=== PATIENT | female | born 1990 | race Caucasian/White ===

== ENCOUNTER 2016-10-28 17:05 | Emergency (ER) | payer MEDICAID, OTHER ==
[~2016-10-28] VITALS: Ht 152.4 cm; Wt 63.2 kg
[2016-10-28 17:17] VITALS: Ht 152.4 cm; Wt 63.2 kg
[2016-10-28] MEDS ORDERED: ONDANSETRON 4 MG INJ IV STA (18:07)
[2016-10-28] MEDS ORDERED: LEVETIRACETAM 500 MG TAB PO ONE (18:30)
[2016-10-28] MEDS ORDERED: HYDROCODONE/APAP (5/325) TAB PO ONE (18:30)
--- NOTE | 2016-10-28 18:51 | RADRPT ---
PROCEDURE: CT Head without. CLINICAL INDICATION: Headache, seizure. TECHNIQUE: The study was performed utilizing a multi-slice, multidetector CT scanner. Direct spira l 1 mm axial sections were obtained through the head without the use of intravenous contrast materia l. Coronal and sagittal reformations were obtained. The images were reviewed on a PACS workstation. RADIATION DOSE: CTDIvol: 44.8 mGyDLP: 630.2 mGy-cm COMPARISON: No prior studies are available for comparison. FINDINGS: There is no intracranial hemorrhage, extra-axial fluid collection, mass lesion, midline shift or hyd rocephalus. There is a persistent cavum septum pellucidum/vergae, normal variant. The ventricles, sulci and cisterns are within normal limits. The white matter is unremarkable. The tate-white jessica er differentiation is preserved. The basal cisterns are patent. The midline structures are intact. The orbits, calvarium and extracranial soft tissues are normal in appearance. The visualized paran bryan sinuses, mastoid air cells and middle ear cavities are normally aerated. IMPRESSION: 1. No acute intracranial abnormality. No intracranial hemorrhage, extra-axial fluid collection, ma ss lesion or hydrocephalous. RPTAT: HGAS .Jean Pierre Mckeon MD, Date Time Electronically viewed and signed by .Jean Pierre Mckeon MD, MD on 10/28/2016 18:51 .S/
[2016-10-28 18:53] LABS: URINE BLOOD (Dip) POC 2+ (NEGATIVE)
[2016-10-28 19:04] LABS: BASOPHILS % 0.4 % (0.0-2.0); EOSINOPHILS # 0.1 10^3/ul (0.0-0.5); EOSINOPHILS % 1.1 % (0.0-7.0); HEMATOCRIT 39.2 % (37.0-47.0); HEMOGLOBIN 13.2 g/dl (12.0-16.0); LYMPHOCYTES # 1.5 10^3/ul (0.8-2.9); LYMPHOCYTES % 16.4 % (15.0-51.0); MEAN CORPUSCULAR HEMOGLOBIN 28.4 pg (29.0-33.0); MEAN CORPUSCULAR HGB CONC 33.6 g/dl (32.0-37.0); MEAN CORPUSCULAR VOLUME 84.6 fl (82.0-101.0); MEAN PLATELET VOLUME 6.3 fl (7.4-10.4); MONOCYTE # 0.6 10^3/ul (0.3-0.9); MONOCYTES % 6.8 % (0.0-11.0); NEUTROPHILS % 75.3 % (39.0-77.0); PLATELET COUNT 371 10^3/UL (140-440); RED BLOOD COUNT 4.64 10^6/ul (4.20-5.40); RED CELL DISTRIBUTION WIDTH 14.4 % (11.5-14.5); UNCORRECTED WBC 9.2 10^3/ul (4.8-10.8); WHITE BLOOD COUNT 9.2 10^3/ul (4.8-10.8)
[2016-10-28 19:09] LABS: CONDITION 1
[2016-10-28 19:10] LABS: POTASSIUM 3.8 mmol/L (3.5-5.1)
[2016-10-28 19:13] LABS: CREATININE 0.88 mg/dl (0.44-1.00)
[2016-10-28 19:14] LABS: CALCIUM 9.3 mg/dl (8.4-10.2)
[2016-10-28] MEDS ORDERED: IBUP-1542 PO (19:40)
[2016-10-28] MEDS ORDERED: LEVE250T66 PO (19:40)
--- NOTE | 2016-10-28 19:45 | ERD ---
ER Documentation Chief Complaint Date/Time DATE: 10/28/16 TIME: 19:43 Chief Complaint n/v, ap starting today HPI This 25-year-old female presents with a headache after giving a history of having a seizure today. Patient gives a history of having a seizure disorder since a young age. She did bite her tongue but denies any bowel or bladder incontinence. See states that she has a history of having this seizure every 6 months although they have become more frequently over the last 6 months. She has had 3 in the last 6 months including one today and one 3 days ago. Her primary complaint is that she usually gets a headache after seizure. She has never had any neurology follow-up and does not have a primary doctor and has never taken medication for seizures. She denies any known history of inciting events prior to her seizure such as trauma or infection. ROS All systems reviewed and are negative except as per history of present illness. Medications Home Meds Active Scripts Ibuprofen* (Motrin*) 600 Mg Tab, 600 MG PO Q6, #20 TAB Prov:SHELLI TORRES MD 10/28/16 Levetiracetam* (Keppra*) 250 Mg Tab, 250 MG PO BID, #60 TAB Prov:SHELLI TORRES MD 10/28/16 PMhx/Soc History of Surgery: No Anesthesia Reaction: No Hx Neurological Disorder: No Hx Respiratory Disorders: No Hx Cardiac Disorders: No Hx Psychiatric Problems: No Hx Miscellaneous Medical Probl: Yes (SEIZURE) Hx Alcohol Use: No Hx Substance Use: No Hx Tobacco Use: No Physical Exam Vitals Vital Signs Date Time Temp Pulse Resp B/P Pulse Ox O2 Delivery O2 Flow Rate FiO2 10/28/16 17:17 98.5 94 18 107/64 100 Physical Exam Const: [] Alert, [id number]. Head: Atraumatic Eyes: Normal Conjunctiva ENT: Normal External Ears, Nose and Mouth. There is a superficial laceration on the lateral aspect of the tongue. Airways patent. Neck: Full range of motion..~ No meningismus. Resp: Clear to auscultation bilaterally Cardio: Regular rate and rhythm, no murmurs Abd: Soft, non tender, non distended. Normal bowel sounds Skin: No petechiae or rashes Back: No midline or flank tenderness Ext: No cyanosis, or edema Neur: Awake and alert. Cranial nerves II through XII grossly intact. Normal gait. No appreciable focal neurologic deficits. Psych: Normal Mood and Affect Result Diagram: 10/28/160 10/28/161839 Results 24 hrs Laboratory Tests Test 10/28/16 18:40 10/28/16 18:53 Anion Gap 18 Basophils # 0.010^3/ul Basophils % 0.4% Blood Morphology Comment Blood Urea Nitrogen 11mg/dl Calcium Level 9.3mg/dl Carbon Dioxide Level 28mmol/L Chloride Level 102mmol/L Creatinine 0.88mg/dl Eosinophils # 0.110^3/ul Eosinophils % 1.1% Glucose Level 87mg/dl Hematocrit 39.2% Hemoglobin 13.2g/dl Lymphocytes # 1.510^3/ul Lymphocytes % 16.4% Mean Corpuscular Hemoglobin 28.4pg Mean Corpuscular Hemoglobin Concent 33.6g/dl Mean Corpuscular Volume 84.6fl Mean Platelet Volume 6.3fl Monocytes # 0.610^3/ul Monocytes % 6.8% Neutrophils # 7.010^3/ul Neutrophils % 75.3% Nucleated Red Blood Cells # 0.010^3/ul Nucleated Red Blood Cells % 0.0/100WBC Platelet Count 42575^3/UL Potassium Level 3.8mmol/L Red Blood Count 4.6410^6/ul Red Cell Distribution Width 14.4% Sodium Level 144mmol/L White Blood Count 9.210^3/ul Bedside Urine Blood 2+ Bedside Urine Glucose (UA) Negative Bedside Urine Ketones (LAB) Negative Bedside Urine Leukocyte Esterase (L Negative Bedside Urine Nitrite (LAB) Negative Bedside Urine Protein (LAB) Negative Bedside Urine pH (LAB) 6.5 Current Medications Medications (Trade) Dose Ordered Sig/Maria Elena Route PRN Reason Start Time Stop Time Status Last Admin Dose Admin Acetaminophen/ Hydrocodone Bitart ([place] (5/325)) 1 tab ONCE ONCE PO 10/28/16 18:30 10/28/16 18:31 DC 10/28/16 19:04 Ondansetron HCl (Zofran Inj) 4 mg ONCE STAT IV 10/28/16 18:07 10/28/16 18:11 DC 10/28/16 19:03 Levetiracetam (Keppra) 1,000 mg ONCE ONCE PO 10/28/16 18:30 10/28/16 18:31 DC 10/28/16 19:16 Procedures/MDM This patient has presents with a curious history of seizure disorder without any previous history of neurology follow-up or seizure medications. Given the uncertain cause of seizures and no previous medical record a CT brain was performed which was read as normal by the radiologist. CBC and BMP and urine are all negative to and hCG is negative. Patient was administered Keppra 1000 mg p.o. [place] 5 mg by mouth for headache. Patient was stable and talkative after observation. Patient shows no signs of intracranial hemorrhage, mass- effect, neurologic deficits, meningitis. Patient appears to have a recurrent seizure disorder with no emergent findings. Patient was discussed that she does need primary care follow-up to follow-up in neurology follow-up. She will be discharged home with a course of Keppra, ibuprofen for headache and referral to local [facility] in neurology. The patient was stable with no new complaints during the ER course. Clinically, there is no current evidence to suggest meningitis, sepsis, acute abdomen, pneumonia, acute coronary syndrome , pulmonary embolism, or any other emergent condition appearing to require further evaluation or hospitalization. The patient should certainly return for any new or worsening symptoms per the aftercare instructions. They should otherwise follow-up with her primary care doctor for reevaluation this week. Departure Diagnosis: Primary Impression: Headache Headache type: unspecified Headache chronicity pattern: acute headache Intractability: not intractable Qualified Code: R51 - Acute nonintractable headache, unspecified headache type Additional Impression: Seizure Condition: Stable Patient Instructions: Epilepsy: How Seizures Affect the Body, Self-Care for Headaches, Seizure, Recurrent [Adult] Referrals: DIMITRY BARRAZA MD, IRA CHUGH, DEEPAK K MD [facility] YOU HAVE RECEIVED A MEDICAL SCREENING EXAM AND THE RESULTS INDICATE THAT YOU DO NOT HAVE A CONDITION THAT REQUIRES URGENT TREATMENT IN THE EMERGENCY DEPARTMENT. FURTHER EVALUATION AND TREATMENT OF YOUR CONDITION CAN WAIT UNTIL YOU ARE SEEN IN YOUR DOCTORS OFFICE WITHIN THE NEXT 1-2 DAYS. IT IS YOUR RESPONSIBILITY TO MAKE AN APPOINTMENT FOR FOLOW-UP CARE. IF YOU HAVE A PRIMARY DOCTOR --you should call your primary doctor and schedule an appointment IF YOU DO NOT HAVE A PRIMARY DOCTOR YOU CAN CALL OUR PHYSICIAN REFERRAL HOTLINE AT IF YOU CAN NOT AFFORD TO SEE A PHYSICIAN YOU CAN CHOSE FROM THE FOLLOWING [facility] [address] [facility] [address] [facility] [address] [facility] [address] [facility]. [facility] [address] [facility] [facility] [address] Additional Instructions: Examinations normal today. Will start medications for seizures. Recheck for new or worsening symptoms with primary care doctor. SHELLI TORRES MD Oct 28, 2016 19:45
[2016-10-28 20:08] VITALS: BP 108/72; PULSE 69; RESP 16; TEMP 98.2
== END 2016-10-28 20:12 | disposition home or self-care (01) ==
LOC: FTE 17:05
DX: R51 Headache (principal); G40.909 Epilepsy, unspecified, not intractable, without status epilepticus; R11.2 Nausea with vomiting, unspecified
CPT/HCPCS: 36415; 70450; 80048; 81003; 85025; 96374; J2405; Z7502; Z7610